=== PATIENT | female | born 1950 ===

== ENCOUNTER 2017-05-22 07:56 | Day surgery (SDC) | payer MEDICARE, OTHER ==
[2017-05-22 09:53] VITALS: BMI 22.3
[2017-05-22] MEDS ORDERED: Propofol 10 mg/ml Inj (20 ML) ONE (10:45)
--- NOTE | 2017-05-22 10:47 | CP.SDSHP ---
Same Day Surgery H & P - History Proposed Procedure: EGD Pre-Op Diagnosis: SEE NOTES - Previous Medical/Surgical History Cardiac: Hypertension Endocrine/Metabolic: Thyroid Disease, Other Misc: Other Pain: 4.Moderate Pain - Allergies Allergies: Allergies No Known Allergies Allergy (Verified 05/22/17 09:52) - Physical Exam General Appearance: N Vital Signs: Vital Signs 05/22/17 10:02 Temperature 98.2 F Pulse Rate 85 Respiratory 20 Rate Blood Pressure 133/64 O2 Sat by Pulse 99 Oximetry Mental Status: Alert & Oriented x3 Neuro: WNL Heart: Other Lungs: WNL GI: Other - {Optional Preform as Required} Breast: WNL Abdomen: Other Rectal: Other Integument: WNL : WNL Ortho: Other ENT: WNL - Impression Pt. Evaluated Today:Candidate for Anesthesia & Procedure: Yes - Date & Time Time: 10:47 Short Stay Discharge - Short Stay Discharge Admitting Diagnosis/Reason for Visit: DYSPEPSIA Disposition: HOME/ ROUTINE
[2017-05-22] MEDS ORDERED: Pantoprazole 40 mg EC Tab PO STA (10:54)
[2017-05-22 11:22] VITALS: TEMP 98.6
[2017-05-22 11:39] VITALS: O2SAT 100
[2017-05-22 11:40] VITALS: BP 111/67; PULSE 72; RESP 11
== END 2017-05-22 12:00 | disposition home or self-care (01) ==
LOC: C.ENDO 07:56
PROVIDERS: ATTEND Specialist
DX: K30 Functional dyspepsia (principal); K29.00 Acute gastritis without bleeding; K44.9 Diaphragmatic hernia without obstruction or gangrene
CPT/HCPCS: 43239; 88305; J2001; J2704

== ENCOUNTER 2017-05-29 07:55 | Day surgery (SDC) | payer MEDICARE, OTHER ==
[2017-05-29 08:20] VITALS: BMI 22.3
[2017-05-29 08:30] VITALS: O2SAT 100
[2017-05-29] MEDS ORDERED: Propofol 10 mg/ml Inj (20 ML) ONE ×2 (08:54→09:13)
[2017-05-29] MEDS ORDERED: Belladonna-Phenobarbital PO STA (08:55)
--- NOTE | 2017-05-29 08:55 | CP.SDSHP ---
Same Day Surgery H & P - History Proposed Procedure: COLONSCOPY Pre-Op Diagnosis: SEE NOTES - Previous Medical/Surgical History Cardiac: Hypertension Endocrine/Metabolic: Thyroid Disease Neuro: Other Misc: Other Pain: 2.Mild Pain - Allergies Allergies: Allergies No Known Allergies Allergy (Verified 05/22/17 09:52) - Physical Exam General Appearance: N Vital Signs: Vital Signs 05/29/17 08:20 Temperature 96.6 F L Pulse Rate 87 Respiratory 18 Rate Blood Pressure 131/87 O2 Sat by Pulse 100 Oximetry Mental Status: Alert & Oriented x3 Neuro: WNL Heart: Other Lungs: WNL GI: WNL - {Optional Preform as Required} Breast: WNL Abdomen: WNL Rectal: Other Integument: WNL : Other Ortho: WNL ENT: WNL - Impression Pt. Evaluated Today:Candidate for Anesthesia & Procedure: Yes - Date & Time Time: 08:54 Short Stay Discharge - Short Stay Discharge Admitting Diagnosis/Reason for Visit: ENCOUNTER FOR SCREENING FOR MALIGNANT NEOPLASM OF Disposition: HOME/ ROUTINE
[2017-05-29] MEDS ORDERED: Glucagon Recombinant 1 mg Inj ONE (09:06)
[2017-05-29 11:03] VITALS: BP 101/65; PULSE 73; RESP 12; TEMP 97.9
== END 2017-05-29 10:50 | disposition home or self-care (01) ==
LOC: C.ENDO 07:55
PROVIDERS: ATTEND Specialist
DX: Z12.11 Encounter for screening for malignant neoplasm of colon (principal); K52.9 Noninfective gastroenteritis and colitis, unspecified; K64.8 Other hemorrhoids; I10 Essential (primary) hypertension; E07.9 Disorder of thyroid, unspecified
CPT/HCPCS: 45380; 88305; J1610; J2704

== ENCOUNTER 2018-10-15 13:07 | Outpatient (CLI) | payer MEDICARE, OTHER | END 2018-10-15 13:08 | disposition home or self-care (01) | LOC: C.USIC 13:07 | DX: N20.0 Calculus of kidney (principal) ==